=== PATIENT | male | born 1935 | race Two or more races ===

== ENCOUNTER 2017-12-05 18:15 | Inpatient (IN) | payer BC, MEDICARE, OTHER ==
[~2017-12-05] VITALS: Ht 180.3 cm; Wt 67.4 kg
[2017-12-05] MEDS ORDERED: IV NS 0.9% 500 ML BAG IV ONE (18:30)
[2017-12-05 18:43] LABS: BASOPHILS % (AUTO) 0.2 % (0.0-2.0); EOSINOPHILS # (AUTO) 0.4 /CMM (0.0-0.7); EOSINOPHILS % (AUTO) 2.8 % (0.0-6.0); HEMATOCRIT 34 % (39-51); HEMOGLOBIN 11.3 g/dL (13.5-17.5); LYMPHOCYTES % (AUTO) 6.5 % (20.0-44.0); MEAN CORPUSCULAR HEMOGLOBIN 28 PG (26.0-33.0); MEAN CORPUSCULAR HGB CONC 33 g/dl (31.0-36.0); MEAN CORPUSCULAR VOLUME 85 fL (80-96); MONOCYTES # (AUTO) 1.2 /CMM (0.1-1.30); MONOCYTES % (AUTO) 8.4 % (2.0-12.0); NEUTROPHILS # (AUTO) 12.2 /CMM (1.8-8.9); NEUTROPHILS % (AUTO) 82.1 % (43.0-81.0); PLATELET COUNT (AUTO) 458 /CMM (150-450); RDW COEFFICIENT OF VARIATION 17.1 (11.5-15.0); RED BLOOD CELL COUNT(AUTO) 4.03 MIL/uL (4.5-6.0); WHITE BLOOD COUNT (AUTO) 14.8 K/uL (4.3-11.0)
[2017-12-05 18:53] LABS: CALCIUM, SERUM 9.7 mg/dL (8.5-10.1); CARBON DIOXIDE 32 mmol/L (21-32); CHLORIDE 95 mmol/L (98-107); CREATININE 2.5 mg/dL (0.6-1.3); GLUCOSE 129 mg/dL (74-106); POTASSIUM 3.1 mmol/L (3.5-5.1); SODIUM SERUM 137 mmol/L (136-145); UREA NITROGEN, BLOOD 21 mg/dL (7-18)
[2017-12-05 18:56] LABS: INR 0.91 (0.85-1.15)
[2017-12-05 18:59] LABS: ALANINE AMINOTRANSFERASE 22 U/L (12-78); ALBUMIN 3.5 g/dL (3.4-5.0); ALKALINE PHOSPHATASE 174 U/L (46-116); ASPARTATE AMINOTRANSFERASE 19 U/L (15-37); BILIRUBIN,DIRECT 0.1 mg/dL (0.0-0.2); BILIRUBIN,TOTAL 0.5 mg/dL (0.2-1.0); TOTAL PROTEIN, SERUM 8.1 g/dL (6.4-8.2)
[2017-12-05 19:00] LABS: SERUM AMMONIA 7 umol/L (11-32)
[2017-12-05 19:01] LABS: TROPONIN I < 0.017 ng/mL (0.00-0.056)
[2017-12-05 19:25] LABS: BAND % (MANUAL) 1 % (0.0-5.0); EOSINOPHILS % (MANUAL) 4 % (0-4); LYMPHOCYTES % (MANUAL) 1 % (16-48); MONOCYTES % (MANUAL) 5 % (0-11.0); NEUTROPHILS % (MANUAL) 89 (42-76)
[2017-12-05 22:15] VITALS: BP 164/67
[2017-12-05] MEDS ORDERED: VIT1TABL46 PO (22:31)
[2017-12-05] MEDS ORDERED: [UNRECOGNIZED DRUG - CODE] OP (22:31)
[2017-12-05] MEDS ORDERED: OFLO5DRO5 RIGHTEYE (22:31)
[2017-12-05] MEDS ORDERED: MIDO10TA PO (22:31)
[2017-12-05] MEDS ORDERED: ALLO100T PO (22:31)
[2017-12-05] MEDS ORDERED: OMEP40CA37 PO (22:31)
[2017-12-05] MEDS ORDERED: CINA30TA2 PO (22:31)
[2017-12-05] MEDS ORDERED: BIMA2.5D5 EACHEYE (22:31)
[2017-12-05] MEDS ORDERED: BRIM5DRO2 EACHEYE (22:31)
[2017-12-05] MEDS ORDERED: SEVE800T8 PO (22:31)
[2017-12-05] MEDS ORDERED: ONDA4TAB10 PO (22:31)
[2017-12-05] MEDS ORDERED: ATOR10TA PO (22:31)
[2017-12-05] MEDS ORDERED: POTA20TA83 PO (23:01)
[2017-12-06] VITALS (8 sets, daily range): BP systolic 135–172; BP diastolic 74–82
[2017-12-06] MEDS ORDERED: LOPE2TAB25 PO (05:42)
[2017-12-06] MEDS ORDERED: NITR0.4T SL (05:42)
[2017-12-06] MEDS ORDERED: DIPH1TAB PO (05:42)
[2017-12-06] MEDS ORDERED: DIPH-530 PO (05:42)
[2017-12-06] MEDS ORDERED: CLON0.1T PO (05:42)
[2017-12-06] MEDS ORDERED: CLONIDINE HCL 0.1 MG TABLET ONE (05:53)
[2017-12-06] MEDS ORDERED: CLONIDINE HCL 0.1 MG TABLET PO PRN ×2 (06:00→12:00)
[2017-12-06 06:39] LABS: BASOPHILS % (AUTO) 0.1 % (0.0-2.0); EOSINOPHILS # (AUTO) 0.3 /CMM (0.0-0.7); EOSINOPHILS % (AUTO) 2.5 % (0.0-6.0); HEMATOCRIT 31 % (39-51); HEMOGLOBIN 10.1 g/dL (13.5-17.5); LYMPHOCYTES % (AUTO) 8.5 % (20.0-44.0); MEAN CORPUSCULAR HEMOGLOBIN 29 PG (26.0-33.0); MEAN CORPUSCULAR HGB CONC 33 g/dl (31.0-36.0); MEAN CORPUSCULAR VOLUME 87 fL (80-96); MONOCYTES % (AUTO) 8.7 % (2.0-12.0); NEUTROPHILS # (AUTO) 9.4 /CMM (1.8-8.9); NEUTROPHILS % (AUTO) 80.2 % (43.0-81.0); PLATELET COUNT (AUTO) 354 /CMM (150-450); RDW COEFFICIENT OF VARIATION 17.8 (11.5-15.0); RED BLOOD CELL COUNT(AUTO) 3.55 MIL/uL (4.5-6.0); WHITE BLOOD COUNT (AUTO) 11.8 K/uL (4.3-11.0)
[2017-12-06 06:49] LABS: ALANINE AMINOTRANSFERASE 19 U/L (12-78); ALBUMIN 2.9 g/dL (3.4-5.0); ALKALINE PHOSPHATASE 146 U/L (46-116); ASPARTATE AMINOTRANSFERASE 17 U/L (15-37); BILIRUBIN,TOTAL 0.5 mg/dL (0.2-1.0); CALCIUM, SERUM 9.8 mg/dL (8.5-10.1); CARBON DIOXIDE 31 mmol/L (21-32); CHLORIDE 98 mmol/L (98-107); CREATININE 3.1 mg/dL (0.6-1.3); GLUCOSE 103 mg/dL (74-106); POTASSIUM 3.3 mmol/L (3.5-5.1); SODIUM SERUM 137 mmol/L (136-145); UREA NITROGEN, BLOOD 26 mg/dL (7-18)
[2017-12-06 06:52] LABS: TROPONIN I 0.002 ng/mL (0.00-0.056)
[2017-12-06] MEDS ORDERED: POTASSIUM CHLORIDE 20 MEQ TAB.PRT.SR PO SCH (10:30)
[2017-12-06] MEDS ORDERED: HYDROGEL DRESSING 90 GM TUBE TP PRN (10:30)
[2017-12-06] MEDS: HYDROGEL DRESSING 90 GM TUBE TP SCH (11:00)
[2017-12-06] MEDS ORDERED: DIPHENOXYLATE HCL/ATROP SULF 1 UDTAB TABLET PO PRN (11:30)
[2017-12-06] MEDS ORDERED: HOME MED MISCELLANEOUS XX SCH (11:30)
[2017-12-06] MEDS ORDERED: diphenhydrAMINE HCL ELIX 25 MG/10 ML UDC PO PRN (11:30)
[2017-12-06] MEDS ORDERED: ONDANSETRON 4 MG TAB.RAPDIS PO PRN (11:30)
[2017-12-06] MEDS ORDERED: NITROGLYCERIN 0.4 MG/TAB BOTTLE SL PRN (11:30)
[2017-12-06] MEDS ORDERED: LOPERAMIDE HCL (2 MG CAP) 2 MG CAPSULE PO PRN (11:30)
[2017-12-06] MEDS: SEVELAMER CARBONATE 800 MG TABLET PO SCH ×2 (13:00→17:44)
[2017-12-06] MEDS ORDERED: MIDODRINE HCL (5MG) 5 MG TABLET PO PRN (13:00)
[2017-12-06] MEDS: IV D5/ 0.9% NACL 1,000 ML IV PRN (13:44)
[2017-12-06] MEDS ORDERED: ACET325T53 PO (16:13)
[2017-12-06] MEDS ORDERED: CINA60TA PO (16:13)
[2017-12-06] MEDS ORDERED: BLOO-668 SQ (16:41)
[2017-12-06] MEDS: RENAL NOVASOURCE (8OZ) 1 EA BOX PO SCH (17:00)
[2017-12-06] MEDS: POTASSIUM CHLORIDE 20 MEQ TAB.PRT.SR PO SCH (17:43)
[2017-12-06] MEDS: CINACALCET HCL 30 MG TABLET PO SCH (17:44)
[2017-12-06] MEDS: ATORVASTATIN 10 MG TABLET PO SCH (17:44)
[2017-12-06] MEDS ORDERED: BIMATOPROST 2.5 ML DROPS OP SCH (18:00)
[2017-12-06] MEDS: TIMOLOL 0.5% SOLN OPHTH 5 ML BOTTLE EACHEYE SCH (18:44)
[2017-12-06] MEDS: LATANOPROST EYE DROP 0.005% 2.5 ML BOTTLE OP SCH (18:45)
[2017-12-06] MEDS: BRIMONIDINE TARTRATE OPHT SOLN 5 ML BOTTLE EACHEYE SCH (18:45)
[2017-12-06] MEDS: CIPROFLOXACIN HCL 0.3% 5 ML BOTTLE RIGHTEYE SCH (18:45)
[2017-12-07 04:00] VITALS: BP 151/74
[2017-12-07 08:00] VITALS: BP 146/79
[2017-12-07] MEDS: SEVELAMER CARBONATE 800 MG TABLET PO SCH ×3 (08:40→17:53)
[2017-12-07] MEDS: POTASSIUM CHLORIDE 20 MEQ TAB.PRT.SR PO SCH ×2 (08:40→17:53)
[2017-12-07] MEDS: VIT B CMPLX 3/FA/VIT C/BIOTIN 1 TAB TABLET PO SCH (08:41)
[2017-12-07] MEDS: ALLOPURINOL 100 MG TABLET PO SCH (08:41)
[2017-12-07] MEDS: CIPROFLOXACIN HCL 0.3% 5 ML BOTTLE RIGHTEYE SCH ×3 (08:42→17:54)
[2017-12-07] MEDS: BRIMONIDINE TARTRATE OPHT SOLN 5 ML BOTTLE EACHEYE SCH ×2 (08:43→17:54)
[2017-12-07] MEDS: RENAL NOVASOURCE (8OZ) 1 EA BOX PO SCH ×2 (08:44→18:00)
[2017-12-07] MEDS: TIMOLOL 0.5% SOLN OPHTH 5 ML BOTTLE EACHEYE SCH ×2 (08:44→17:55)
[2017-12-07] MEDS: PANTOPRAZOLE 40 MG TABLET.DR PO SCH (08:47)
[2017-12-07] MEDS: HYDROGEL DRESSING 90 GM TUBE TP SCH (08:53)
[2017-12-07] MEDS ORDERED: POTASSIUM CHLORIDE 20 MEQ TAB.PRT.SR PO SCH (09:00)
[2017-12-07] MEDS: IV D5/ 0.9% NACL 1,000 ML IV PRN (11:57)
[2017-12-07 12:00] VITALS: BP 144/67
[2017-12-07 16:30] VITALS: BP 137/61
[2017-12-07] MEDS: ATORVASTATIN 10 MG TABLET PO SCH (17:53)
[2017-12-07] MEDS: CINACALCET HCL 30 MG TABLET PO SCH (17:53)
[2017-12-07] MEDS: LATANOPROST EYE DROP 0.005% 2.5 ML BOTTLE OP SCH (17:54)
[2017-12-07 20:00] VITALS: BP 164/69
[2017-12-08] VITALS: BP 160/80
[2017-12-08 04:00] VITALS: BP 145/77
[2017-12-08 07:29] LABS: BASOPHILS % (AUTO) 0.1 % (0.0-2.0); EOSINOPHILS # (AUTO) 0.8 /CMM (0.0-0.7); EOSINOPHILS % (AUTO) 7.3 % (0.0-6.0); HEMATOCRIT 29 % (39-51); HEMOGLOBIN 9.6 g/dL (13.5-17.5); LYMPHOCYTES # (AUTO) 1.1 /CMM (0.8-4.8); LYMPHOCYTES % (AUTO) 10.8 % (20.0-44.0); MEAN CORPUSCULAR HEMOGLOBIN 29 PG (26.0-33.0); MEAN CORPUSCULAR HGB CONC 33 g/dl (31.0-36.0); MEAN CORPUSCULAR VOLUME 86 fL (80-96); MONOCYTES # (AUTO) 1.3 /CMM (0.1-1.30); NEUTROPHILS # (AUTO) 7.4 /CMM (1.8-8.9); NEUTROPHILS % (AUTO) 69.8 % (43.0-81.0); PLATELET COUNT (AUTO) 328 /CMM (150-450); RED BLOOD CELL COUNT(AUTO) 3.35 MIL/uL (4.5-6.0); WHITE BLOOD COUNT (AUTO) 10.6 K/uL (4.3-11.0)
[2017-12-08 07:39] LABS: CALCIUM, SERUM 8.7 mg/dL (8.5-10.1); CARBON DIOXIDE 27 mmol/L (21-32); CHLORIDE 101 mmol/L (98-107); CREATININE 5.6 mg/dL (0.6-1.3); GLUCOSE 105 mg/dL (74-106); MAGNESIUM 1.8 mg/dL (1.8-2.4); PHOSPHORUS 2.9 mg/dL (2.5-4.9); POTASSIUM 3.9 mmol/L (3.5-5.1); SODIUM SERUM 138 mmol/L (136-145); UREA NITROGEN, BLOOD 52 mg/dL (7-18)
[2017-12-08 08:00] VITALS: BP 159/58
[2017-12-08] MEDS: POTASSIUM CHLORIDE 20 MEQ TAB.PRT.SR PO SCH (09:31)
[2017-12-08] MEDS: VIT B CMPLX 3/FA/VIT C/BIOTIN 1 TAB TABLET PO SCH (09:31)
[2017-12-08] MEDS: SEVELAMER CARBONATE 800 MG TABLET PO SCH ×2 (09:31→14:45)
[2017-12-08] MEDS: PANTOPRAZOLE 40 MG TABLET.DR PO SCH (09:32)
[2017-12-08] MEDS: RENAL NOVASOURCE (8OZ) 1 EA BOX PO SCH (09:32)
[2017-12-08] MEDS: ALLOPURINOL 100 MG TABLET PO SCH (09:32)
[2017-12-08] MEDS: BRIMONIDINE TARTRATE OPHT SOLN 5 ML BOTTLE EACHEYE SCH (09:37)
[2017-12-08] MEDS: TIMOLOL 0.5% SOLN OPHTH 5 ML BOTTLE EACHEYE SCH (09:37)
[2017-12-08] MEDS: HYDROGEL DRESSING 90 GM TUBE TP SCH (09:37)
[2017-12-08] MEDS: CIPROFLOXACIN HCL 0.3% 5 ML BOTTLE RIGHTEYE SCH ×2 (09:37→14:46)
[2017-12-08 12:00] VITALS: BP 154/71
== END 2017-12-08 17:50 | disposition home or self-care (01) | DRG 640 ==
LOC: ER 18:17 → TELE1 20:22
PROVIDERS: ADMIT Internal Medicine Nephrology; ATTEND Internal Medicine Nephrology
PROC: 5A1D70Z Performance of Urinary Filtration, Intermittent, Less than 6 Hours Per Day (ICD-10-PCS; principal; 2017-12-08)
DX: E86.9 Volume depletion, unspecified (principal); L89.153 Pressure ulcer of sacral region, stage 3; I12.0 Hypertensive chronic kidney disease with stage 5 chronic kidney disease or end stage renal disease; R65.10 Systemic inflammatory response syndrome (SIRS) of non-infectious origin without acute organ dysfunction; R53.2 Functional quadriplegia; L89.613 Pressure ulcer of right heel, stage 3; N18.6 End stage renal disease; N25.81 Secondary hyperparathyroidism of renal origin; D64.9 Anemia, unspecified; F03.90 Unspecified dementia, unspecified severity, without behavioral disturbance, psychotic disturbance, mood disturbance, and anxiety; R55 Syncope and collapse; E78.5 Hyperlipidemia, unspecified; E87.6 Hypokalemia; K21.9 Gastro-esophageal reflux disease without esophagitis; Z99.2 Dependence on renal dialysis; D72.829 Elevated white blood cell count, unspecified; H91.90 Unspecified hearing loss, unspecified ear
CPT/HCPCS: 36415; 70450-TC; 71045-TC; 80048-TC; 80053-TC; 80076-TC; 82140-TC; 83735-TC; 84100-TC; 84484-TC; 85025-TC; 85730-TC; 87081-TC; 90935-TC; A6248; A6402; A6403; J7042